=== PATIENT | female | born 1945 | race Caucasian/White ===

== ENCOUNTER 2024-04-23 16:58 | Emergency (ER) | payer MEDICARE, OTHER ==
[2024-04-23 19:28] LABS: ALT (SGPT) 46 U/L (8-55); AST (SGOT) 51 U/L (5-34); Albumin 3.5 g/dL (3.4-4.8); Alkaline Phosphatase 118 U/L (40-110); Anion Gap 17 mmol/L (10-20); BUN (Urea Nitrogen) 35 mg/dL (9.8-20.1); Bilirubin, Total 1.5 mg/dL (0.2-1.2); Calc. Creatinine Clearance 0 mL/min (70-130); Calcium 11.1 mg/dL (7.8-10.44); Carbon Dioxide 17 mmol/L (23-31); Chloride 99 mmol/L (98-107); Estimated GFR 37; Globulin 3.3 g/dL (2.4-3.5); Glucose 133 mg/dL (83-110); Protein, Total 6.8 g/dL (5.8-8.1); Sodium 129 mmol/L (136-145)
[2024-04-23 19:29] LABS: Hematocrit 35.6 % (34.9-44.5); Hemoglobin 12.3 g/dL (12.0-15.5); Mean Corpuscular HGB CONC 34.6 g/dL (32.0-36.0); Mean Corpuscular Hemoglobin 29.6 pg (27.0-33.0); Mean Corpuscular Volume 85.6 fL (81.6-98.3); Mean Platelet Volume 10.2 fL (7.4-10.4); Platelet Count 108 10x3/uL (150-450); RBC Distribution Width 16.9 % (11.5-14.5); Red Blood Cell (RBC) Count 4.16 10x6/uL (3.90-5.03); White Blood Cell (WBC) Count 27.5 10x3/uL (3.5-10.5)
[2024-04-23 19:47] LABS: Band 11 % (5-11); Eosinophils 1 % (0-10); Lymphocytes 2 % (21-51); Monocytes 4 % (0-10)
[2024-04-23] MEDS ORDERED: traMADol HCl 50 MG TAB ONE (19:47)
[2024-04-23 19:49] LABS: Neutrophil 82 % (42-75)
[2024-04-23 19:50] LABS: Dohle Bodies SLIGHT; Large Platelets SLIGHT (None Seen); RBC Morph Comment Within Normal Limits; Vacuoles SLIGHT
[2024-04-23 19:51] LABS: Platelet Adequacy Comment Appears Decreased
[2024-04-23 19:54] LABS: MDiff Complete? YES
[2024-04-23 21:35] LABS: Bilirubin Neg (Negative); Blood, Urine 10 (Negative); Clarity Slightly Cloudy (Clear); Glucose, Urine (Dipstick) Normal (Negative); Ketone, Urine Negative (Negative); Leukocyte 500 (Negative); Nitrite Negative (Negative); Protein, Urine (Dipstick) 30 mg/dl (Neg-Trace); Specific Gravity, Urine 1.015 (1.005-1.030); Urobilinogen Normal mg/dL (Less than 2)
[2024-04-23 22:20] LABS: Bacteria/HPF None Seen HPF (None Seen); CAUTI Indications for Culture Alt mental st,lethar; RBC/HPF 0-3 HPF (0-3); Squamous Epithelial 0-3 HPF (0-3); Urine Culture Reflex No No
[2024-04-23] MEDS ORDERED: Nitrofurantoin Monohyd/M-Cryst 100 MG CAP PO SCH (23:30)
== END 2024-04-24 00:09 | disposition home or self-care (01) ==
LOC: CSHERS 16:58
DX: N39.0 Urinary tract infection, site not specified (principal); M54.9 Dorsalgia, unspecified; I10 Essential (primary) hypertension; E11.9 Type 2 diabetes mellitus without complications; E03.9 Hypothyroidism, unspecified; Z87.891 Personal history of nicotine dependence; Z79.899 Other long term (current) drug therapy; Z79.84 Long term (current) use of oral hypoglycemic drugs
CPT/HCPCS: 36415; 70450; 70486; 71045; 72125; 72131; 80053; 81001; 83605; 83880; 85025; 87040; 93005

== ENCOUNTER 2024-04-26 20:17 | Inpatient (IN) | payer MEDICARE, MEDICAID ==
[2024-04-26] MEDS ORDERED: cefTRIAXone (ROCEPHIN) 2 GM VIAL ONE (20:35)
[2024-04-26 21:27] LABS: Actual Bicarbonate (HCO3v) 20.4 mEq/L (22-28); Analyzer IN Cardio CS ER; Base Excess -5.1 mEq/L (-2 - +2); Calcium, Ionized (venous) 1.16 mmol/L (1.16-1.32); Chloride (VBG) 99 mmol/L (98-106); Critical Notified By: CP.PH; Hematocrit 36.6 % (34.9-44.5); Hematocrit-VBG 39 % (36.0-47.0); Hemoglobin 12.1 g/dL (12.0-15.5); Hemoglobin (Hb) 13.3 g/dL (11.7-16.1); Mean Corpuscular HGB CONC 33.1 g/dL (32.0-36.0); Mean Corpuscular Volume 87.8 fL (81.6-98.3); Mean Platelet Volume 10.7 fL (7.4-10.4); Platelet Count 179 10x3/uL (150-450); Potassium (VBG) 3.45 mmol/L (3.70-5.30); Puncture Site Other Site; RBC Distribution Width 16.7 % (11.5-14.5); RapidComm Collect By LAB.YY; Red Blood Cell (RBC) Count 4.17 10x6/uL (3.90-5.03); Sodium 131 mmol/L (133-146); White Blood Cell (WBC) Count 25.1 10x3/uL (3.5-10.5)
[2024-04-26 21:39] LABS: Bilirubin Neg (Negative); Blood, Urine 150 (Negative); Clarity Clear (Clear); Glucose, Urine (Dipstick) Normal (Negative); Ketone, Urine Negative (Negative); Leukocyte 500 (Negative); Nitrite Negative (Negative); Protein, Urine (Dipstick) 15 mg/dl (Neg-Trace); Specific Gravity, Urine 1.005 (1.005-1.030); Urobilinogen Normal mg/dL (Less than 2)
[2024-04-26 21:48] LABS: ALT (SGPT) 25 U/L (8-55); AST (SGOT) 32 U/L (5-34); Albumin 3.2 g/dL (3.4-4.8); Alkaline Phosphatase 156 U/L (40-110); Anion Gap 17 mmol/L (10-20); BUN (Urea Nitrogen) 18 mg/dL (9.8-20.1); Bilirubin, Total 1.3 mg/dL (0.2-1.2); Calc. Creatinine Clearance 0 mL/min (70-130); Calcium 9.3 mg/dL (7.8-10.44); Carbon Dioxide 18 mmol/L (23-31); Chloride 100 mmol/L (98-107); Estimated GFR 73; Globulin 3.3 g/dL (2.4-3.5); Glucose 126 mg/dL (83-110); Potassium 3.5 mmol/L (3.5-5.1); Protein, Total 6.5 g/dL (5.8-8.1); Sodium 131 mmol/L (136-145)
[2024-04-26 21:48] LABS: Bacteria/HPF 2+ HPF (None Seen); CAUTI Indications for Culture Pelvic or flank pain; Squamous Epithelial 0-3 HPF (0-3)
[2024-04-26 21:49] LABS: Urine Culture Reflex Yes Yes
[2024-04-26 21:54] LABS: MDiff Complete? YES
[2024-04-26 21:57] LABS: Band 1 % (5-11); Eosinophils 2 % (0-10); Lymphocytes 11 % (21-51); Metamyelocyte 1 % (0-0); Monocytes 4 % (0-10); Myelocyte 5 % (0-0); Neutrophil 76 % (42-75)
[2024-04-26 21:58] LABS: Large Platelets SLIGHT (None Seen); Platelet Adequacy Comment Appears Adequate; RBC Morph Comment Within Normal Limits
[2024-04-26] MEDS ORDERED: Ondansetron PF 4 MG/2 ML Vial IVP PRN (22:26)
[2024-04-26] MEDS ORDERED: Dextrose 50% Abboject 50 ML SYRINGE SLOW IVP PRN (22:34)
[2024-04-26] MEDS ORDERED: Glucagon 1 MG/ML KIT IM PRN (22:34)
[2024-04-26] MEDS ORDERED: Dextrose 5% in Water 1,000 ML IV PRN (22:34)
[2024-04-26] MEDS ORDERED: Insulin Lispro 100 UNIT/ML 10 ML VIAL SC PRN ×2 (22:34)
[2024-04-27 00:26] VITALS: BMI 31.7
[2024-04-27 04:14] LABS: Hematocrit 32.2 % (34.9-44.5); Hemoglobin 10.3 g/dL (12.0-15.5); Mean Corpuscular Hemoglobin 28.3 pg (27.0-33.0); Mean Corpuscular Volume 88.5 fL (81.6-98.3); RBC Distribution Width 16.6 % (11.5-14.5); Red Blood Cell (RBC) Count 3.64 10x6/uL (3.90-5.03); White Blood Cell (WBC) Count 20.2 10x3/uL (3.5-10.5)
[2024-04-27 04:16] LABS: Mean Platelet Volume 10.7 fL (7.4-10.4); Platelet Count 158 10x3/uL (150-450)
[2024-04-27 04:28] LABS: Anion Gap 14 mmol/L (10-20); BUN (Urea Nitrogen) 16 mg/dL (9.8-20.1); Calc. Creatinine Clearance 79 mL/min (70-130); Calcium 8.4 mg/dL (7.8-10.44); Carbon Dioxide 17 mmol/L (23-31); Chloride 107 mmol/L (98-107); Estimated GFR 83; Glucose 119 mg/dL (83-110); Potassium 3.5 mmol/L (3.5-5.1); Sodium 134 mmol/L (136-145)
[2024-04-27 04:36] LABS: MDiff Complete? YES
[2024-04-27 05:30] LABS: Eosinophils 2 % (0-10); Lymphocytes 10 % (21-51); Metamyelocyte 1 % (0-0); Monocytes 8 % (0-10); Myelocyte 1 % (0-0)
[2024-04-27 05:31] LABS: Band 30 % (5-11); Neutrophil 48 % (42-75)
[2024-04-27 05:32] LABS: Large Platelets SLIGHT (None Seen); Platelet Adequacy Comment Appears Adequate
[2024-04-27 05:33] LABS: Anisocytosis SLIGHT = 6-15 cells (100X) (0-5/hpf); Ovalocytes SLIGHT = 2-5 cells (100X) (0-1/hpf); Polychromasia SLIGHT = 2-3 cells (100X) (0-2/hpf)
[2024-04-27] MEDS: Levothyroxine Sodium 125 MCG TAB PO SCH (07:26)
[2024-04-27] MEDS: FLU (Fluad Triv) TS24-25 (65UP)/MF59C/PF 45 MCG/0.5 ML Syringe IM ONE (07:47)
[2024-04-27] MEDS: Vancomycin HCl 125 MG Capsule PO SCH (08:43)
[2024-04-27] MEDS: Lisinopril 20 MG TAB PO SCH (08:43)
[2024-04-27] MEDS: Sertraline 100 MG TAB PO SCH (08:43)
[2024-04-27] MEDS: Potassium Chloride 20 MEQ TAB PO SCH (10:18)
[2024-04-27] MEDS: risperiDONE 1 MG TAB PO SCH (21:25)
[2024-04-27] MEDS: Atorvastatin Calcium 40 MG TAB PO SCH (21:26)
[2024-04-27] MEDS: cefTRIAXone\\ROCEPHIN 2 GM in Sodium Chloride 0.9% 100 ML IVPB SCH (21:27)
[2024-04-28 03:56] LABS: Hematocrit 33.3 % (34.9-44.5); Hemoglobin 11.1 g/dL (12.0-15.5); Mean Corpuscular HGB CONC 33.3 g/dL (32.0-36.0); Mean Corpuscular Hemoglobin 29.4 pg (27.0-33.0); Mean Corpuscular Volume 88.3 fL (81.6-98.3); Mean Platelet Volume 10.5 fL (7.4-10.4); Platelet Count 168 10x3/uL (150-450); Red Blood Cell (RBC) Count 3.77 10x6/uL (3.90-5.03); White Blood Cell (WBC) Count 17.9 10x3/uL (3.5-10.5)
[2024-04-28 04:04] LABS: MDiff Complete? YES
[2024-04-28 04:06] LABS: Anion Gap 13 mmol/L (10-20); BUN (Urea Nitrogen) 14 mg/dL (9.8-20.1); Calc. Creatinine Clearance 80 mL/min (70-130); Calcium 8.3 mg/dL (7.8-10.44); Carbon Dioxide 20 mmol/L (23-31); Chloride 107 mmol/L (98-107); Estimated GFR 85; Glucose 89 mg/dL (83-110); Potassium 3.6 mmol/L (3.5-5.1); Sodium 136 mmol/L (136-145)
[2024-04-28 04:58] LABS: Band 20 % (5-11); Eosinophils 2 % (0-10); Lymphocytes 15 % (21-51); Metamyelocyte 2 % (0-0); Monocytes 3 % (0-10); Myelocyte 8 % (0-0); Neutrophil 48 % (42-75); Other Cell Types 2
[2024-04-28 05:01] LABS: Large Platelets SLIGHT (None Seen); Platelet Adequacy Comment Appears Adequate
[2024-04-28 05:02] LABS: Anisocytosis SLIGHT = 6-15 cells (100X) (0-5/hpf); Ovalocytes SLIGHT = 2-5 cells (100X) (0-1/hpf); Reflex for Review?? YES
[2024-04-28] MEDS: busPIRone HCl 15 MG TAB PO SCH (14:25)
[2024-04-28] MEDS: Vancomycin HCl 125 MG Capsule PO SCH (14:26)
[2024-04-28] MEDS: Melatonin 3 MG TAB PO PRN (20:07)
[2024-04-29 03:45] LABS: Hematocrit 33.2 % (34.9-44.5); Hemoglobin 10.5 g/dL (12.0-15.5); Mean Corpuscular HGB CONC 31.6 g/dL (32.0-36.0); Mean Corpuscular Hemoglobin 27.9 pg (27.0-33.0); Mean Corpuscular Volume 88.3 fL (81.6-98.3); Mean Platelet Volume 9.9 fL (7.4-10.4); Platelet Count 218 10x3/uL (150-450); Red Blood Cell (RBC) Count 3.76 10x6/uL (3.90-5.03); White Blood Cell (WBC) Count 22.8 10x3/uL (3.5-10.5)
[2024-04-29 03:58] LABS: Anion Gap 12 mmol/L (10-20); BUN (Urea Nitrogen) 11 mg/dL (9.8-20.1); Calc. Creatinine Clearance 86 mL/min (70-130); Calcium 8.1 mg/dL (7.8-10.44); Carbon Dioxide 21 mmol/L (23-31); Chloride 106 mmol/L (98-107); Estimated GFR 90; Glucose 116 mg/dL (83-110); Potassium 3.6 mmol/L (3.5-5.1); Sodium 135 mmol/L (136-145)
[2024-04-29 04:02] LABS: MDiff Complete? YES
[2024-04-29 04:34] LABS: Band 19 % (5-11); Eosinophils 4 % (0-10); Lymphocytes 15 % (21-51); Metamyelocyte 1 % (0-0); Monocytes 4 % (0-10); Myelocyte 5 % (0-0); Neutrophil 48 % (42-75); Other Cell Types 4
[2024-04-29 12:56] LABS: Campy jejuni + coli by PCR POSITIVE (Negative); STEC Shiga Toxin 1+2 Negative (Negative); Salmonella spp. by PCR Negative (Negative); Shigella spp + EIEC by PCR Negative (Negative)
[2024-04-29] MEDS: Meropenem 1 GM in Sodium Chloride 0.9% 100 ML IVPB SCH (20:38)
[2024-04-29] MEDS: Acetaminophen 325 MG TAB PO PRN (20:41)
[2024-04-30] MEDS: Meropenem 1 GM in Sodium Chloride 0.9% 100 ML IVPB SCH ×2 (03:24→04:11)
[2024-04-30] MEDS: Vancomycin HCl 125 MG Capsule PO SCH (16:59)
[2024-05-01 03:45] LABS: #Basophils 0.18 10x3/uL (0.0-0.2); #Eosinophils 0.31 10x3/uL (0.0-0.5); #Monocytes 1.26 10x3/uL (0.0-1.1); #Neutrophils 18.68 10x3/uL (1.5-8.4); %Basophils 0.7 % (0.0-2.0); %Eosinophils 1.2 % (0.0-6.0); %Lymphocytes 8.4 % (18.0-47.0); %Monocytes 4.9 % (0.0-10.0); %Neutrophils 72.3 % (40.0-75.0); Hematocrit 35.2 % (34.9-44.5); Hemoglobin 11.4 g/dL (12.0-15.5); Mean Corpuscular HGB CONC 32.4 g/dL (32.0-36.0); Mean Corpuscular Hemoglobin 29.2 pg (27.0-33.0); Mean Platelet Volume 9.2 fL (7.4-10.4); Platelet Count 291 10x3/uL (150-450); RBC Distribution Width 16.8 % (11.5-14.5); Red Blood Cell (RBC) Count 3.91 10x6/uL (3.90-5.03); White Blood Cell (WBC) Count 25.8 10x3/uL (3.5-10.5)
[2024-05-01 03:53] LABS: Anion Gap 14 mmol/L (10-20); BUN (Urea Nitrogen) 11 mg/dL (9.8-20.1); Calc. Creatinine Clearance 81 mL/min (70-130); Calcium 8.7 mg/dL (7.8-10.44); Carbon Dioxide 20 mmol/L (23-31); Chloride 106 mmol/L (98-107); Estimated GFR 90; Glucose 124 mg/dL (83-110); Potassium 4.4 mmol/L (3.5-5.1); Sodium 136 mmol/L (136-145)
[2024-05-01 04:57] LABS: RBC Morph Comment Within Normal Limits; Vacuoles SLIGHT
[2024-05-01 04:58] LABS: Platelet Adequacy Comment Appears Adequate
[2024-05-02 04:07] LABS: Anion Gap 14 mmol/L (10-20); BUN (Urea Nitrogen) 13 mg/dL (9.8-20.1); Calc. Creatinine Clearance 77 mL/min (70-130); Calcium 9.2 mg/dL (7.8-10.44); Carbon Dioxide 21 mmol/L (23-31); Chloride 105 mmol/L (98-107); Estimated GFR 89; Glucose 122 mg/dL (83-110); Potassium 4.6 mmol/L (3.5-5.1); Sodium 135 mmol/L (136-145)
[2024-05-02 04:25] LABS: Hematocrit 38.2 % (34.9-44.5); Hemoglobin 11.7 g/dL (12.0-15.5); Mean Corpuscular HGB CONC 30.6 g/dL (32.0-36.0); Mean Corpuscular Hemoglobin 27.9 pg (27.0-33.0); Mean Platelet Volume 9.3 fL (7.4-10.4); Platelet Count 292 10x3/uL (150-450); RBC Distribution Width 16.7 % (11.5-14.5); White Blood Cell (WBC) Count 21.3 10x3/uL (3.5-10.5)
[2024-05-02 05:29] LABS: MDiff Complete? YES
[2024-05-02 05:31] LABS: Band 3 % (5-11); Lymphocytes 16 % (21-51); Metamyelocyte 5 % (0-0); Monocytes 6 % (0-10); Neutrophil 70 % (42-75)
[2024-05-02 05:33] LABS: Platelet Adequacy Comment Appears Adequate; Vacuoles SLIGHT
[2024-05-02] MEDS: Cholestyramine/Aspartame 4 gm Packet PO SCH (10:29)
[2024-05-02 12:17] VITALS: BMI 29.4
[2024-05-03 04:31] LABS: Hematocrit 39.1 % (34.9-44.5); Hemoglobin 12.1 g/dL (12.0-15.5); Mean Corpuscular HGB CONC 30.9 g/dL (32.0-36.0); Mean Corpuscular Hemoglobin 28.1 pg (27.0-33.0); Mean Corpuscular Volume 90.9 fL (81.6-98.3); Platelet Count 287 10x3/uL (150-450); RBC Distribution Width 16.6 % (11.5-14.5); White Blood Cell (WBC) Count 26.8 10x3/uL (3.5-10.5)
[2024-05-03 04:32] LABS: MDiff Complete? YES
[2024-05-03 04:45] LABS: Band 7 % (5-11); Eosinophils 1 % (0-10); Lymphocytes 9 % (21-51); Metamyelocyte 2 % (0-0); Monocytes 6 % (0-10); Myelocyte 1 % (0-0); Neutrophil 73 % (42-75)
[2024-05-03 04:51] LABS: Anisocytosis SLIGHT = 6-15 cells (100X) (0-5/hpf); Platelet Adequacy Comment Appears Adequate; Polychromasia SLIGHT = 2-3 cells (100X) (0-2/hpf); Vacuoles SLIGHT
[2024-05-03 05:06] LABS: Anion Gap 15 mmol/L (10-20); BUN (Urea Nitrogen) 16 mg/dL (9.8-20.1); Calc. Creatinine Clearance 74 mL/min (70-130); Calcium 9.3 mg/dL (7.8-10.44); Carbon Dioxide 17 mmol/L (23-31); Chloride 101 mmol/L (98-107); Estimated GFR 85; Glucose 151 mg/dL (83-110); Potassium 4.8 mmol/L (3.5-5.1); Sodium 128 mmol/L (136-145)
[2024-05-03] MEDS: Sodium Chloride 0.9% 1,000 ML IV SCH (09:28)
[2024-05-04 05:36] LABS: Anion Gap 14 mmol/L (10-20); BUN (Urea Nitrogen) 18 mg/dL (9.8-20.1); Calc. Creatinine Clearance 76 mL/min (70-130); Calcium 9.5 mg/dL (7.8-10.44); Carbon Dioxide 20 mmol/L (23-31); Chloride 106 mmol/L (98-107); Estimated GFR 88; Glucose 126 mg/dL (83-110); Potassium 4.6 mmol/L (3.5-5.1); Sodium 135 mmol/L (136-145)
[2024-05-04 05:53] LABS: #Basophils 0.07 10x3/uL (0.0-0.2); #Eosinophils 0.25 10x3/uL (0.0-0.5); #Monocytes 1.41 10x3/uL (0.0-1.1); #Neutrophils 12.31 10x3/uL (1.5-8.4); %Basophils 0.4 % (0.0-2.0); %Eosinophils 1.5 % (0.0-6.0); %Lymphocytes 13.5 % (18.0-47.0); %Monocytes 8.4 % (0.0-10.0); %Neutrophils 72.9 % (40.0-75.0); Hematocrit 40.4 % (34.9-44.5); Hemoglobin 12.5 g/dL (12.0-15.5); Mean Corpuscular HGB CONC 30.9 g/dL (32.0-36.0); Mean Corpuscular Volume 90.4 fL (81.6-98.3); Mean Platelet Volume 9.2 fL (7.4-10.4); Platelet Count 288 10x3/uL (150-450); RBC Distribution Width 16.7 % (11.5-14.5); Red Blood Cell (RBC) Count 4.47 10x6/uL (3.90-5.03); White Blood Cell (WBC) Count 16.9 10x3/uL (3.5-10.5)
[2024-05-04 08:10] VITALS: TEMP 97.9
[2024-05-04 12:59] VITALS: BP 133/66
== END 2024-05-04 12:10 | disposition home or self-care (01) | DRG 872 ==
LOC: CSHERS 20:17 → CSHTELE 22:30 → OBSVTOIN 22:31
PROVIDERS: ADMIT Internal Medicine; ATTEND Internal Medicine
DX: A41.89 Other specified sepsis (principal); N39.0 Urinary tract infection, site not specified; E87.1 Hypo-osmolality and hyponatremia; W19.XXXA Unspecified fall, initial encounter; I10 Essential (primary) hypertension; E78.5 Hyperlipidemia, unspecified; E11.9 Type 2 diabetes mellitus without complications; E03.9 Hypothyroidism, unspecified; F41.9 Anxiety disorder, unspecified; F31.9 Bipolar disorder, unspecified; Z88.2 Allergy status to sulfonamides; Z85.3 Personal history of malignant neoplasm of breast; Z90.710 Acquired absence of both cervix and uterus; Z90.12 Acquired absence of left breast and nipple; Z87.891 Personal history of nicotine dependence; Z88.8 Allergy status to other drugs, medicaments and biological substances; Z88.7 Allergy status to serum and vaccine
CPT/HCPCS: 36415; 36416; 71045; 80048; 80053; 81001; 82805; 83605; 84300; 84443; 85025; 85060; 87040; 87086; 87324; 87449; 87505; 94760; 94762; 96365; J0696; J2185; J7030